=== PATIENT | female | born 1960 | race Caucasian/White ===

== ENCOUNTER 2024-08-28 22:23 | Inpatient (IN) ==
--- NOTE | 2024-08-28 23:20 | Emergency Department Note ---
ED Provider Note History of Present Illness Chief Complaint: Ankle Pain Stated Complaint: RT ANKLE MIGHT BE BROKEN, FALL Time Seen by Provider: 08/28/24 23:06 Source: patient Mode of arrival: ambulatory Limitations: no limitations This patient is a 64-year-old female who presents to the emergency department for evaluation of a right ankle injury. Patient reports that she fell down the steps. She states that when she felt herself falling, she sat down but she did not get her ankle out from under herself before that happened. She reports pain and deformity in the right ankle. She is unable to move the ankle. No prior injuries to this ankle. Home Medications Medication Instructions Recorded Confirmed Type Aspirin (Aspirin EC Low Dose) 1 tab PO DAILY ##0 08/12/15 History CALCIUM CARBONATE-CHOLECALCIFE 2 tab PO DAILY ##0 08/12/15 History (CALTRATE 600+D) Ergocalciferol (Vitamin D) 400 inter.unit PO DAILY #0 tabs 08/12/15 History Fish Oil ([place]-3) 2 cap PO DAILY #0 caps 08/12/15 History MULTIPLE VITAMINS W/ MINERALS 1 tab PO DAILY ##0 08/12/15 History (MULTI FOR HER 50+) acetaminophen 500 mg tablet 1,000 mg (2 x 500 mg) PO Q8 30 08/29/24 Rx (Tylenol Extra Strength) days #180 tabs oxycodone 5 mg tablet 5 mg PO Q4H PRN pain #40 tabs 08/29/24 Rx Allergies Allergy/AdvReac Type Severity Reaction Status Date / Time Sulfa (Sulfonamide Allergy Unknown . Verified 08/13/15 00:26 Antibiotics) Past Med/Surg History Problem List (Updated 08/29/24 @ 20:46 by Siva Garcia MD) Encounter for pre-operative examination Fracture dislocation of right ankle Dyslipidemia (Chronic) Mitral valve prolapse (Chronic) Hyperlipemia (Chronic) History of appendectomy (Chronic) H/O ovarian cystectomy (Chronic) Partial small bowel obstruction Social History Smoking Status: Never smoker Second Hand Exposure: No; Do You Dip or Chew Tobacco: No; Tobacco Cessation Education Requested by Patient: No Hx Alcohol Use: Yes Alcohol type: wine and hard liquor Hx Substance Use: No Preferred Language: Romansh Communication Ability: Effective Chief Merchandising Officer Required: No Beliefs That Will Affect Care: None Current Living Situation: Spouse Other Information That Helps Us Care for You: No Feels Safe at Home: Yes Safety Concerns: Feels Safe At This Time Assistive Devices: Brace/Splint/Immobilizer, Glasses, Hospital Bed, Walker and Other Assistive Devices Comment: Orthoglass Splint. Physical Exam Vital Signs Vital Signs - 24 hr 08/29/24 00:10 Pulse Rate 66 VITALS: Vitals are noted on the nurse's note and reviewed by myself. GENERAL: This is a 64-year-old female, in no acute distress, well-developed well-nourished. SKIN: Ecchymosis noted over the medial malleolus of the right ankle. MUSCULOSKELETAL: Obvious deformity of the right ankle with foot pointing laterally. Dorsalis pedis pulse 2+. NEURO: Patient was alert and oriented to person place and time. Distal sensation intact. Procedures Orthopedic Fracture Reduction Right Ankle: Side: right Fracture Reduction Location: tibia and fibula Analgesia: other (Dilaudid) Technique: direct manipulation Post Reduction X-rays Demonstrate: acceptable reduction Post-reduction neuro exam: intact and no change Post-reduction vascular exam: intact and no change Splint Applied: Yes Patient Tolerated Procedure: well Course Course Splint placement: Splint: Ortho-Glass posterior and stirrup Indication: Distal tibia/fibula fracture Ortho-Glass splint was applied by the ED sound effects technician under my supervision. Neurovascular status reassessed by myself status post splint placement and was intact. Administered Medications Acetaminophen (Acetaminophen 500 Mg Tab) 1,000 mg PO Q8 [facility] Stop: 09/28/24 21:59 Last Admin: 08/29/24 21:32 Dose: 1,000 mg Documented By: MIRACLE Ascorbic Acid (Ascorbic Acid 500 Mg Tab) 500 mg PO BIDM [facility] Stop: 09/28/24 17:22 Last Admin: 08/29/24 20:22 Dose: 500 mg Documented By: MIRACLE Docusate Sodium (Docusate Sodium 100 Mg Cap) 100 mg PO BID [facility] Stop: 09/28/24 20:59 Last Admin: 08/29/24 20:20 Dose: Not Given Documented By: MIRACLE Sodium Chloride (Nss) 1,000 mls @ 80 mls/hr IV .[id number] [facility] Stop: 08/30/24 03:29 Last Admin: 08/29/24 17:34 Dose: 80 mls/hr Documented By: Infusion: 08/29/24 17:24 Dose: Infused Documented By: Admin: 08/29/24 02:46 Dose: 80 mls/hr Documented By: FAYE Cefazolin Sodium (Ancef 1000mg) 1,000 mg in 7.5 mls @ 2.5 mls/min IV Q8H [facility]; Protocol Stop: 08/30/24 06:32 Last Admin: 08/29/24 21:32 Dose: 2.5 mls/min Documented By: MIRACLE Ketorolac Tromethamine (Ketorolac 30 Mg/Ml Vial) 30 mg IV Q6H [facility] Stop: 08/31/24 12:01 Last Admin: 08/29/24 18:26 Dose: 30 mg Documented By: LESA Morphine Sulfate (Morphine Sulfate 2 Mg/Ml Carp) 2 mg IV Q2H PRN PRN Reason: Pain Stop: 09/12/24 05:30 Last Admin: 08/29/24 11:34 Dose: 2 mg Documented By: Admin: 08/29/24 09:33 Dose: 2 mg Documented By: Admin: 08/29/24 07:38 Dose: 2 mg Documented By: Admin: 08/29/24 05:46 Dose: 2 mg Documented By: FAYE Oxycodone HCl (Oxycodone Hcl Ir 5 Mg Tab (Immediate Release)) 5 mg PO Q4H PRN PRN Reason: Pain Stop: 09/12/24 02:11 Last Admin: 08/29/24 08:39 Dose: 5 mg Documented By: Admin: 08/29/24 04:49 Dose: 5 mg Documented By: PAOAL Sennosides (Senna 8.6 Mg Tab) 17.2 mg PO HS [facility] Stop: 09/28/24 20:59 Last Admin: 08/29/24 20:20 Dose: Not Given Documented By: MIRACLE Discontinued Medications Acetaminophen (Acetaminophen 500 Mg Tab) 1,000 mg PO Q8H PRN PRN Reason: Pain Stop: 09/28/24 02:11 Last Admin: 08/29/24 07:40 Dose: 1,000 mg Documented By: LESA Bupivacaine HCl/Epinephrine Bitart (Bupivacaine/Epinephrine 0.5% Mpf 1:200,000 30 Ml Vial) Confirm Administered Dose 30 ml .ROUTE .STK-MED ONE Stop: 08/29/24 14:44 Last Admin: 08/29/24 15:50 Dose: 30 ml Documented By: CORKY Hydromorphone HCl (Hydromorphone Inj 1 Mg/Ml Syringe) 1 mg IV NOW STA Stop: 08/28/24 23:15 Last Admin: 08/28/24 23:39 Dose: 1 mg Documented By: EDILMA Cefazolin Sodium (Ancef 2000mg) 2,000 mg in 15 mls @ 3.75 mls/min IV PREOP [facility]; Protocol Stop: 08/29/24 16:00 Last Admin: 08/29/24 14:40 Dose: 3.75 mls/min Documented By: THONY Medical Decision Making Differential Diagnosis Fracture, subluxation, dislocation, contusion, ligamentous injury, neurovascular, compartment syndrome, rhabdomyolysis, as well as other pathologies. Laboratory Data Attestation: I reviewed the patient's lab results. 08/29/24 00:36 08/29/24 00:36 Lab Results 08/29/24 Range/Units 00:36 WBC 8.49 (4.8-10.8) K/ul RBC 4.24 (4.20-5.40) M/uL Hgb 12.9 (12.0-16.0) g/dl Hct 37.4 (37.0-47.0) % MCV 88.2 (80.0-100.0) fL MCH 30.4 (25.0-34.0) pg MCHC 34.5 (32.0-36.0) g/dL RDW Std Deviation 40.3 (36.4-46.3) fL RDW Coeff of Maritza 12.6 (11.5-14.5) % Plt Count 196 (130-400) K/uL MPV 10.2 (9.4-12.4) fL Immature Gran % (Auto) 0.2 % Neut % (Auto) 71.3 % Lymph % (Auto) 20.1 % Bulloch % (Auto) 6.5 % Eos % (Auto) 1.4 % Baso % (Auto) 0.5 % Neut # (Auto) 6.05 (1.40-6.50) K/uL Lymph # (Auto) 1.71 (1.20-3.40) K/uL Bulloch # (Auto) 0.55 (0.11-0.59) K/uL Eos # (Auto) 0.12 (0.00-0.50) K/uL Baso # (Auto) 0.04 (0.00-0.20) K/uL Immature Gran # (Auto) 0.02 (0.01-0.20) K/uL Sodium 141 (136-145) mmol/L Potassium 3.8 (3.5-5.1) mmol/L Chloride 109 H (98-107) mmol/L Carbon Dioxide 27 (21-32) mmol/L Anion Gap 5 (3-11) BUN 24 H (6-23) mg/dl Creatinine 0.68 (0.6-1.2) mg/dl Est Cr Clr Drug Dosing Not Reportable eGFR 96.59 BUN/Creatinine Ratio 35.3 H (10-20) Glucose 111 H (70-99(Fasting)) mg/dl Calcium 8.7 (8.6-10.3) mg/dl Imaging Data Attestation: I personally reviewed and interpreted this imaging study as follows: My Impression: ANKLE: Trimalleolar fracture with displacement noted ANKLE (postreduction): Somewhat improved alignment of the previously noted trimalleolar fracture MDM Narrative Patient is a 64-year-old female who presents to the emergency department for evaluation of an ankle injury. Patient has a displaced fracture on exam. X- rays obtained. The ankle was reduced into a more satisfactory position and splint was applied. Orthopedics was consulted and will admit the patient for operative management tomorrow. Patient was given Dilaudid for pain in the ER with significant improvement. Patient comfortable with the plan of care. Discharge Plan Visit Data Chief Complaint: Ankle Pain Stated Complaint: RT ANKLE MIGHT BE BROKEN, FALL ED Provider: Marc Lizarraga ED Midlevel Provider: Marivel Alicia Patient Disposition: Admitted As Inpatient Discharge Instructions Interventions: ED Discharge Assessment Last Done: 08/29/24 02:10
[2024-08-28] MEDS: HYDROmorphone INJ 1 MG/ML SYRINGE IV STA (23:39)
--- OUTSIDE RECORDS SUMMARY | 2024-08-29 00:25 | External Medical Summary | Summary of Care ---
Author Name Unknown Organization [facility] Address [address] [place] [address] Phone [phone] Care Team Providers Care It Service Delivery Manager Name Role Phone Clara Aguilar MD Primary Care Provider [phone] Encounter Details Date Type Department Care Team (Late st Contact Info) Description 05/09/2024 Orders Only Outcomes Research Department [address] [place] [address] Sissy Molina [employer], Research Other*[id number] Allergies Active Allergy Reactions Criticality Noted Date Comments Sulfa Antibiotics 05/05/2001 documented as of this encounter (statuses as of 05/09/2024) Medications No known medicationsdocumented as of this encounter (statuses as of 05/09/2024) Active Problems Problem Noted Date Diagnosed Date Osteopenia 01/23/2022 Overview: Repeat DEXA 2024 Adenomatous polyp of rectum 12/13/2017 Sciatica of left side 11/11/2016 Plantar fasciitis 08/13/2016 Adenomatous polyp of transverse colon 08/10/2016 Overview: Repeat colonoscopy 2018. dysplastic compound nevus left midback and lower back 02/2109/01/2002 dysplastic compound nevus le ft back and left breast ,right lower abdomen 07/2309/01/2002 Mitral valve prolapse Overview: mild MR Hyperlipidemia with target LDL less than 100 Overview: ICD-10 update of inactive term documented as of this encounter (statuses as of 05/09/2024) Immunizations Name Administration Dates Next Due Seasonal Influenza, PF, 6 M & above, IM , (FluLaval or Fluzone) 09/15/2022,08/29/2020 Seasonal Influenza, Quadrivalent, No Preserve, I M 06/08/2016,08/18/2015 Seasonal Influenza, Trivalen t, (IIV3), with Preserv, (Fluzone) 10/11/2014,10/02/2013 TD, Preservative Free 09/15/2022 TDAP, Age 7 and older, IM (Adacel) 10/07/2011 documented as of this encounter Social History Tobacco Use Types Packs/Day Years Used Date Smoking Tobacco: Never Smokeless Tobacco: Never Alcohol Use Standard Drinks/Week Comments Yes 0 (1 standard drink = 0.6 oz pur e alcohol) socially PHQ-2 Answer Date Recorded PHQ Adult Total Score 0 09/15/2022 Hunger Vital Sign Answer Date Recorded Within the past 12 months, y ou worried that your food would run out before you got the money to buy more. Never true 08/29/19 21 Within the past 12 months, t he food you bought just didn't last and you didn't have money to get more. Never true 08/29/2020 Utilities Answer Date Recorded Do you have trouble paying y our heating, water, or electric bill? (Adult - for ages 18 years and over) Not on file 02/08/2024 Is your family able to pay t he heat, water, or electric bill? (Household - for ages 0-17 years) Not on file 02/08/2024 Does your family have access to good internet? (Household - for ages 0-17 years) Not on file 02/08/2024 Social Connections Answer Date Recorded How often do you feel lonely or isolated from those around you? (Adult - for ages 18 years and over) Not on file 02/08/2024 Sex and Gender Information Value Date Recorded Sex Assigned at Female 12/15/2018 8:27 AM EDT Gender Identity Female 12/15/2018 8:27 AM EDT Sexual Orientation Straight 12/15/2018 8: 27 AM EDT Job Start Date Occupation Industry Not on file Not on file Not on file documented as of this encounter Plan of Treatment Scheduled Orders Name Type Priority Associated Diagnoses Orde r Schedule MYCODE SUBSEQUENT ADULT Lab Routine MyCode Research Other*[id number] Every 6 Months for 2 Occurrences starting 05/09/2024 until 05/29/2025 Health Maintenance Due Date Last Done Comments HPV/Co-Test 1989 Cologuard 2004 Fecal Occult Blood Test 2004 05/05/2001 Sigmoidoscopy 2004 Zoster Vaccines (1 of 2) 2009 Colonoscopy 11/10/2018 11/11/2015, 10/22, 11/10/2007 Colorectal Cancer Screening 11/10/2018 Depression Screening 09/15/2023 09/15/2022 Mammogram 11/11/2023 11/10/2022, 08/2021, 09/18/2020, Additional history exists COVID-19 Vaccine ( season) 2024 Influenza Vaccine (FLU shot) (#1) 2024 09/15/2022, 08/29/2020, 06/08/2016, Additional history exists Diabetes Screening 09/12/2024 09/12/2021, 0 12/14/2018, 12/13/2017, Additional history exists Cervical Cancer Screening 12/17/2024 Pap Smear 12/17/2024 12/17/2021, 07/24, 07/30/2014, Additional history exists Lipid Panel 09/12/2026 09/12/2021, 11/22, 12/13/2017, Additional history exists DTap/Tdap Vaccines (3 - Td or Tdap) 09/15/2032 09/15/2022, 10/07/2011 HPV (Gardasil) Vaccine Aged Out No lo nger eligible based on patient's age to complete this topic Hepatitis B Vaccine Aged Out No longe r eligible based on patient's age to complete this topic MENINGOCOCCAL (MENACTRA/MENVEO) Aged Out No longer eligible based on patient's age to complete this topic Pneumococcal Vaccine: Pediatrics (0 to 5 Years) and At-Risk Patients (6 to 64 Years) Aged Out No longer eligible based on patient's age to complete this topic documented as of this encounter Medical Devices Not on filedocumented as of this encounter Visit Diagnoses Diagnosis MyCode Research Other*[id number] documented in this encounter Care Teams It Service Delivery Manager Relationship Specialty Start Date End Date Clara Aguilar MD [address] [place] [address] PCP - General Internal Medicine 10/01/11 documented as of this encounter
[2024-08-29 00:56] LABS: Basophils # (auto) 0.04 K/uL (0.00-0.20); Basophils % (auto) 0.5 %; Eosinophils # (auto) 0.12 K/uL (0.00-0.50); Eosinophils % (auto) 1.4 %; Hematocrit (blood only) 37.4 % (37.0-47.0); Hemoglobin 12.9 g/dl (12.0-16.0); Immature Granulocytes # (auto) 0.02 K/uL (0.01-0.20); Immature Granulocytes % (auto) 0.2 %; Lymphocytes # (auto) 1.71 K/uL (1.20-3.40); Lymphocytes % (auto) 20.1 %; Mean Corpuscular Hemoglobin 30.4 pg (25.0-34.0); Mean Corpuscular Hgb Conc 34.5 g/dL (32.0-36.0); Mean Corpuscular Volume 88.2 fL (80.0-100.0); Mean Platelet Volume 10.2 fL (9.4-12.4); Monocytes # (auto) 0.55 K/uL (0.11-0.59); Monocytes % (auto) 6.5 %; Neutrophils # (auto) 6.05 K/uL (1.40-6.50); Neutrophils % (auto) 71.3 %; Platelet Count 196 K/uL (130-400); RDW Coefficient of Variation 12.6 % (11.5-14.5); RDW Standard Deviation 40.3 fL (36.4-46.3); Red Blood Count 4.24 M/uL (4.20-5.40); White Blood Count 8.49 K/ul (4.8-10.8)
[2024-08-29 01:07] LABS: Anion Gap 5 (3-11); BUN Creatinine Ratio 35.3 (10-20); Blood Urea Nitrogen 24 mg/dl (6-23); Calcium 8.7 mg/dl (8.6-10.3); Carbon Dioxide 27 mmol/L (21-32); Chloride 109 mmol/L (98-107); Glucose 111 mg/dl (70-99(Fasting)); Potassium 3.8 mmol/L (3.5-5.1); Sodium 141 mmol/L (136-145)
--- NOTE | 2024-08-29 01:28 | XRay Report ---
EXAM: XR chest 1V portable CLINICAL HISTORY: PRE OP DENIES CHEST COMPLAINTS [facility] TECHNIQUE: An X-ray image of the chest is obtained in AP projection. COMPARISON: 08/12/2015. FINDINGS: Pulmonary Parenchyma: Lungs show bilateral perihilar prominent bronchovascular markings. No evidence of consolidation, collapse, or focal opacities. No pulmonary nodules are identified. No evidence of pleural effusion or pleural thickening. Heart and Mediastinum: Heart size and shape are normal. No mediastinal widening or masses. No hilar or mediastinal lymphadenopathy. Bony Thorax: Bony thorax appears intact without fractures or deformities. Soft Tissues: Soft tissues overlying the chest wall are unremarkable. IMPRESSION: Bilateral prominent bronchovascular markings, more apparent compared to the last CR, are nonspecific finding; clinical correlation is advised. Electronically signed by Debbie Villalobos 08-29-2024 01:28 AM
--- NOTE | 2024-08-29 01:32 | XRay Report ---
Exam(s): XR RIGHT ANKLE, 3+ views EXAM: XR Right Ankle Complete, 3 or More Views CLINICAL HISTORY: Reason for exam: right ankle injury. TECHNIQUE: Frontal, lateral and oblique views of the right ankle. COMPARISON: None FINDINGS: Bones/joints: Displaced fractures of the medial, lateral, and posterior malleoli. Disruption of the ankle mortise. No dislocation. Soft tissues: Soft tissue swelling. IMPRESSION: Trimalleolar fractures with disruption of the ankle mortise. Electronically signed by: Danita Gonzales M.D. 08/29/24 01:31 AM
--- NOTE | 2024-08-29 01:40 | XRay Report ---
EXAM: XR ankle RT min 3V routine CLINICAL HISTORY: POST REDUCTION RT ANKLE DONE IN SPLINT [facility] TECHNIQUE: X-ray images of the right ankle were obtained in anteroposterior (AP), lateral, and mortise projections. COMPARISON: No prior studies available for comparison. FINDINGS: Plaster splint noted. Bone Structure: Displaced distal tibia and fibula fracture with intra-articular extension. Joint Spaces: Joint spaces are normal. No evidence of joint effusion or subluxation. Soft Tissues: Soft tissues appear normal and unremarkable. No soft tissue swelling, calcifications, or foreign bodies noted. Additional Findings: No signs of osteoarthritis, bone spurs, lytic or sclerotic lesions. IMPRESSION: Displaced fractures at the distal tibia and fibula with intra-articular extension. Disclaimer: A subtle bone abnormality or fracture may not be readily apparent on X-rays, thus clinical correlation and further imaging including follow-up CT, MRI, or follow-up X-rays are advised as needed. Electronically signed by Debbie Villalobos 08-29-2024 01:40 AM
--- NOTE | 2024-08-29 02:22 | CT Scan Report ---
EXAM: CT ankle RT wo con CLINICAL HISTORY: right ankle fx PW/VANESSA TECHNIQUE: Contiguous axial CT images of the right ankle joint were obtained without intravenous contrast. Sagittal and coronal multiplanar reformats were acquired. One of the following dose reduction techniques were utilized for this exam: Automated exposure control, adjustment of the mA and/or kV according to patient size, use of iterative reconstruction. COMPARISON: CR 08/29/2024 FINDINGS: Bones: Comminuted fracture of the distal tibia and fibula with intra-articular extension, multiple free bony fragments, and a tiny intra-articular bony fragment at the talotibial joint. The distal tibia fragment shows posterior displacement, and the distal fibula fragments show lateral displacement. No lytic or sclerotic lesions. No evidence of bone marrow edema. Joints: Normal appearance of the tibiotalar, subtalar, and other ankle joints. No joint effusions or significant degenerative changes. Normal articular surfaces without erosions or osteophyte formation. Soft Tissues: Diffuse surrounding soft tissue edema and subcutaneous fat stranding noted. No evidence of tendinopathy or ligamentous injury. Muscles: Normal appearance of the surrounding musculature. No muscle atrophy or abnormal density changes. IMPRESSION: 1. Comminuted displaced fractures of distal tibia and fibula with intra-articular extension at both levels and tiny bony fragments within the talotibial joint. 2. Surrounding soft tissue edema noted. 3. More detailed appearance compared to CR. Electronically signed by Debbie Villalobos 08-29-2024 02:21 AM
[2024-08-29] MEDS: SODIUM CHLORIDE 0.9% 1,000 ML IV SCH (02:46)
[2024-08-29] MEDS: oxyCODONE HCL IR 5 MG TAB (IMMEDIATE RELEASE) PO PRN (04:49)
[2024-08-29] MEDS: MoRPHine SULFATE 2 MG/ML CARP IV PRN (05:46)
--- NOTE | 2024-08-29 06:31 | History & Physical Report ---
Date of Service August 29, 2024 Assessment & Plan (1) Fracture dislocation of right ankle: We will keep her npo for surgery later today, likely ORIF of the right ankle. Procedure explained today. Keep right foot/ankle elevated on pillows, ice to right ankle. NWB RLE. Pain better controlled. Aleksandar/scd to left leg for dvt prophylaxis. Will likely resume aspirin post op for dvt prophylaxis. History of Present Illness Chief Complaint: . Primary Care Provider: Clara Aguilar MD .Kody is a 64 year old patient who injured her right ankle last night when walking down her stairs. She had pain and deformity, was seen in the ER last night, underwent closed reduction and splinting and was admitted overnight. She is complaining of only right ankle pain, some pain across the top of her foot. She did get some morphine and pain is better controlled. No other complaints. Allergies Allergy/AdvReac Type Severity Reaction Status Date / Time Sulfa (Sulfonamide Allergy Unknown . Verified 08/13/15 00:26 Antibiotics) Home Medications Medication Instructions Recorded Confirmed Type Aspirin (Aspirin EC Low Dose) 1 tab PO DAILY ##0 08/12/15 History CALCIUM CARBONATE-CHOLECALCIFE 2 tab PO DAILY ##0 08/12/15 History (CALTRATE 600+D) Ergocalciferol (Vitamin D) 400 inter.unit PO DAILY #0 tabs 08/12/15 History Fish Oil ([place]-3) 2 cap PO DAILY #0 caps 08/12/15 History MULTIPLE VITAMINS W/ MINERALS 1 tab PO DAILY ##0 08/12/15 History (MULTI FOR HER 50+) Past Med/Surg History Problem List (Updated 08/29/24 @ 06:29 by Jose Carlos Loredo PA-C) Fracture dislocation of right ankle Dyslipidemia (Chronic) Mitral valve prolapse (Chronic) Hyperlipemia (Chronic) History of appendectomy (Chronic) H/O ovarian cystectomy (Chronic) Partial small bowel obstruction Social History Smoking Status: Never smoker Second Hand Exposure: No; Do You Dip or Chew Tobacco: No; Tobacco Cessation Education Requested by Patient: No Hx Alcohol Use: Yes Alcohol type: wine and hard liquor Hx Substance Use: No Preferred Language: Nepali Communication Ability: Effective Project Management Instructor Required: No Beliefs That Will Affect Care: None Current Living Situation: Spouse Other Information That Helps Us Care for You: No Feels Safe at Home: Yes Safety Concerns: Feels Safe At This Time Assistive Devices: Brace/Splint/Immobilizer, Glasses, Hospital Bed, Walker and Other Assistive Devices Comment: Orthoglass Splint. Review of Systems All systems reviewed & are unremarkable except as noted in HPI & below. Physical Exam . alert and oriented. NAD Right ankle: splint in place. Foot is in slight plantarflexion, Able to gently move toes. Brisk refill, sensation intact to touch. Splint not removed today. Results & Data Results & Data Laboratory Results . Diagnostic Findings . xrays and ct scan of the right ankle show a displaced trimalleolar ankle fx/dislocation, with some residual displacement. PG Care Time/CCT Total # of Minutes Spent Total Time Spent with Patient: Total time spent is greater than 50% in coordination of care (as documented) at patient's floor/unit and/or counseling patient: Coding Level of Care Code 90168 INT INP/OBS CARE MIN (57 - DECISION FOR SURGERY) Diagnoses Fracture dislocation of right ankle S82.891A
[2024-08-29] MEDS: ACETAMINOPHEN 500 MG TAB PO PRN (07:40)
--- NOTE | 2024-08-29 09:00 | Electrocardiogram Report ---
Test Reason : Blood Pressure : */* mmHG Vent. Rate : 64 BPM Atrial Rate : 64 BPM P-R Int : 160 ms QRS Dur : 92 ms QT Int : 432 ms P-R-T Axes : 44 36 45 degrees QTcB Int : 445 ms Sinus rhythm with occasional Premature ventricular complexes Otherwise normal ECG When compared with ECG of 12-Aug-2015 18:10, Premature ventricular complexes are now Present Confirmed by Marcellus Guzmán ([id number]) on 08/29/2024 8:59:26 AM Referred By: REFERRED SELF Confirmed By: Marcellus Guzmán
--- NOTE | 2024-08-29 11:07 | Anesthesiology Consultation ---
Date of Service August 29, 2024 Assessment & Plan (1) Encounter for pre-operative examination: Chart Review Chart Review: Acceptable Risk for Surgery and Patient NOT seen in Pre Admission Testing Consults Requested none History Surgery Operation Date: 08/29/24 09:55 Proposed Procedures p Right Ankle Open Reduction Internal Fixation - Raz Mari MD Height/Weight Height: 5 ft 9 in Weight: 70.08 kg Allergies Allergy/AdvReac Type Severity Reaction Status Date / Time Sulfa (Sulfonamide Allergy Unknown . Verified 08/13/15 00:26 Antibiotics) Medications Home Medications Medication Instructions Recorded Confirmed Last Taken Aspirin (Aspirin EC Low Dose) 1 tab PO DAILY ##0 08/12/15 Unknown CALCIUM CARBONATE-CHOLECALCIFE 2 tab PO DAILY ##0 08/12/15 Unknown (CALTRATE 600+D) Ergocalciferol (Vitamin D) 400 inter.unit PO DAILY #0 tabs 08/12/15 Unknown Fish Oil ([place]-3) 2 cap PO DAILY #0 caps 08/12/15 Unknown MULTIPLE VITAMINS W/ MINERALS 1 tab PO DAILY ##0 08/12/15 Unknown (MULTI FOR HER 50+) Active Medications Generic Name Dose Route Start Last Admin Trade Name Freq PRN Reason Stop Dose Admin Acetaminophen 1,000 mg 08/29/24 02:12 08/29/24 07:40 Acetaminophen 500 Mg Tab PO 09/28/24 02:11 1,000 mg Q8H PRN Administration Pain Sodium Chloride 1,000 mls @ 80 mls/hr 08/29/24 02:30 08/29/24 02:46 Nss IV 08/30/24 03:29 80 mls/hr .[id number] GORDON Administration Morphine Sulfate 2 mg 08/29/24 05:31 08/29/24 09:33 Morphine Sulfate 2 Mg/Ml Carp IV 09/12/24 05:30 2 mg Q2H PRN Administration Pain Oxycodone HCl 5 mg 08/29/24 02:12 08/29/24 08:39 Oxycodone Hcl Ir 5 Mg Tab (Immediate Release) PO 09/12/24 02:11 5 mg Q4H PRN Administration Pain NPO Date Last Intake of Fluids: 08/28/24 Time Last Intake of Fluids: 23:59 Date Last Intake of Solids: 08/28/24 Time Last Intake of Solids: 23:59 Social History Smoking Status: Never smoker Do You Dip or Chew Tobacco: No Hx Alcohol Use: Yes Alcohol type: wine and hard liquor alcohol intake frequency: holidays/special occasions only Hx Substance Use: No substance use type: does not use Physical Exam Vital Signs Last Vital Signs Temp 98.1 F 08/29/24 07:28 Pulse 64 08/29/24 07:28 Resp 18 08/29/24 07:28 BP 102/59 L 08/29/24 07:28 Pulse Ox 98 08/29/24 07:28 O2 Del Method Room Air 08/29/24 07:28 Testing Laboratory Results 08/29/24 00:36 08/29/24 00:36 Blood Type A Positive 08/29/24 02:18 Antibody Screen NEGATIVE 08/29/24 02:18 Electrocardiogram Date: 08/29/24 Findings: + NSR @ (with PVC) Chest X-Ray Date: 08/28/24 Bilateral prominent bronchovascular markings, more apparent compared to the last CR, are nonspecific finding; clinical correlation is advised.
[2024-08-29] MEDS ORDERED: ROPIVACAINE 0.5% 5 MG/ML 30 ML VIAL ONE (12:52)
--- NOTE | 2024-08-29 13:02 | History & Physical Bridge Note ---
Date of Service August 29, 2024 History & Physical Bridge Note I have examined the patient, reviewed the History & Physical and in the interval since the performance of the History & Physical I have noted the following changes of clinical significance: no changes noted
[2024-08-29] MEDS ORDERED: fentaNYL citrate PF 100 MCG/2 ML VIAL IV PRN (13:55)
[2024-08-29] MEDS ORDERED: ATROPINE SULFATE 0.1 MG/ML 10ML SYR IV PRN (13:55)
[2024-08-29] MEDS ORDERED: ePHEDrine sulfate 50 MG/ML AMP IV PRN (13:55)
[2024-08-29] MEDS ORDERED: ONDANSETRON INJ 2 MG/ML 2 ML VIAL IV PRN ×2 (13:55→17:23)
[2024-08-29] MEDS ORDERED: fentaNYL citrate PF 100 MCG/2 ML VIAL ONE (14:10)
[2024-08-29] MEDS ORDERED: MIDAZOLAM HCL 1 MG/ML 2ML VIAL ONE (14:10)
[2024-08-29] MEDS ORDERED: DEXAMETHASONE SOD INJ 4 MG/ML VIAL ONE (14:13)
[2024-08-29] MEDS ORDERED: PROPOFOL IV EMULSION 10 MG/ML 20 ML VIAL IV ONE (14:13)
[2024-08-29] MEDS ORDERED: ONDANSETRON INJ 2 MG/ML 2 ML VIAL ONE (14:13)
[2024-08-29] MEDS ORDERED: LIDOCAINE 2% 2 ML VIAL/AMP(20MG/ML) INFIL ONE (14:13)
[2024-08-29] MEDS: ceFAZolin 2000MG 2,000 MG/15 ML SYR IV SCH (14:40)
[2024-08-29] MEDS ORDERED: ePHEDrine sulfate 50 MG/5 ML SYR ONE (15:02)
[2024-08-29] MEDS ORDERED: KETOROLAC 30 MG/ML VIAL ONE (15:07)
[2024-08-29] MEDS: BUPIVACAINE/EPINEPHRINE 0.5% MPF 1:200,000 30 ML VIAL ONE (15:50)
--- NOTE | 2024-08-29 16:03 | Fluoroscopy Report ---
FL ankle RT min 3V RTN CLINICAL HISTORY: RT ANKLE FX ORIF COMPARISON STUDY: CT 08/29/2024 FLUOROSCOPY TIME: 39.1 seconds FLUOROSCOPY IMAGES: 5 EXPOSURE DOSE: 0.7333 mGy FINDINGS: Lateral plate and screw fusion hardware fixates the acute distal fibular fracture with inta ct cannulated screws of the medial malleolar fracture. Expected postoperative soft tissue swelling wi th deep tissue air. IMPRESSION: Fluoroscopic assistance as above. ACT 112: Negative or not required by law. Electronically signed by: Presley Crowe M.D. 08/29/2024 4:02 PM
--- NOTE | 2024-08-29 16:28 | Operative Report ---
PG Post Operative Report Pre & Post Diagnosis Operation Date: 08/29/24 09:55 Pre-Op Diagnosis: Right ankle Tri malleoli fracture/dislocation. Post-Op Diagnosis: Right ankle trimalleolar fracture/dislocation. I identified the patient and participated in the time-out.: Yes Procedure Operation Date: 08/29/24 09:55 Actual Procedures p Right Ankle trimalleolar fracture open Reduction Internal Fixation(Right) - Siva Garcia MD Surgeon Siva Garcia MD Heavy Equipment Mechanic Kory Loredo PA-C/Christa Cerrato PA-C Estimated Blood Loss 20 Findings Consistent with Post-Op Diagnosis Specimens None Anesthesia Type General Complications none Disposition Accompanied Patient To Recovery: No Indications The patient is a 64-year-old female sustained an injury last evening. She sustained a fall on the steps at home. She had acute onset of pain discomfort deformity to right foot patient brought to emergency room where x-rays show a right trimalar ankle fracture dislocation. She underwent closed reduction. She was admitted to the hospital and indicated for surgical management. Description of Procedure Operative implants consists of: Medial side implants consist of: 1. 4.0 partially-threaded/long threaded cannulated screw x 2 with washers. Lateral side implants consist of: 1. 7 hole Synthes one third semitubular locking plate. 2. 3.5 fully threaded cortical screws x 4. 3. 4.0 fully threaded cancellous screws x 2 The patient was taken the op room, identified, placed on the operative table in supine position. All conductors were appropriately padded. IV antibiotics t ried by anesthesia team. Regional anesthetic was implemented in the holding area. A general anesthetic was implemented. A right thigh tent was then placed. The right lower extremity splint was then removed. The right foot and ankle were then scrubbed with Hibiclens, prepped with ChloraPrep and draped in the usual sterile fashion. The right leg was elevated and exsanguinated with use of an Esmarch and a tourniquet was placed at 300 mmHg. Attention was first drawn to the medial side. A curvilinear incision was made over the medial malleolus. Sharp dissection was Directly down to the fracture. There is quite a bit of periosteal stripping. We had to remove a lot of soft tissue from the fracture site. There was some slight comminution which had to be removed. I then irrigated the wound. I reduced the fracture anatomically and placed 2 wires across the fracture site. This was verified fluoroscopically and then into a 4.0 partially-threaded/long threaded cancellous screws were then placed over the wires with washers on each screw. Despite excellent medial fixation. Attention drawn the laterally. A direct lateral approach to the fibula was then performed to a longitudinal incision. Sharp dissection Through subcutaneous tissue directly down to the fracture site. The fracture was exposed. It was reduced and held with reduction clamps. A single 3.5 cortical lag screw was placed from anterior to posterior fracture site. A 7 hole one third the plate was closed with 0.5 cortical x-rays brought in. The fracture irrigation. Subcutaneous cleaned and dried and sterile dressed with Xeroform, sterile leg cast padding, well-padded and stirrup splint was applied the patient was then brought out of general to the recovery in stable condition. Patient tolerated procedure well. Kory Loredo, and Christa Chong, both the physician assistants, required for this case for proper prepping and draping Daniela, retraction, placement of the hardware of the fracture, closure of the incision site placement of the postoperative splint. I attest to the content of the Intraoperative Record and any orders documented therein. Any exceptions are noted below.
[2024-08-29] MEDS ORDERED: NALOXONE HCL 0.4 MG/1 ML VIAL/CARP IV PRN (17:23)
[2024-08-29] MEDS ORDERED: METOCLOPRAMIDE HCL INJ 5 MG/ML 2 ML VIAL IV PRN (17:23)
[2024-08-29] MEDS ORDERED: MAGNESIUM HYDROXIDE SUSP 30 ML UDC PO PRN (17:23)
[2024-08-29] MEDS ORDERED: HYDROmorphone INJ 1 MG/ML SYRINGE IV PRN (17:23)
[2024-08-29] MEDS ORDERED: ALUMINUM/MAGNESIUM SUSP 30 ML UDC PO PRN (17:23)
[2024-08-29] MEDS ORDERED: bisacodyL 10 MG SUPP PR PRN (17:23)
[2024-08-29] MEDS ORDERED: oxyCODONE HCL IR 5 MG TAB (IMMEDIATE RELEASE) PO PRN (17:23)
[2024-08-29] MEDS: KETOROLAC 30 MG/ML VIAL IV SCH (18:26)
--- NOTE | 2024-08-29 18:40 | Anesthesiology Progress Note ---
Date of Service August 29, 2024 Anesthesia Post Procedure Vital Signs Vital Signs: Temp Pulse Pulse Pulse Resp BP BP 08/29/24 18:26 36.6 C 66 16 106/67 08/29/24 17:50 36.5 C 75 18 125/75 08/29/24 17:20 36.5 C 60 18 103/64 08/29/24 17:00 36.2 C L 62 14 111/60 08/29/24 16:50 62 14 109/55 L 08/29/24 16:40 61 13 105/58 L 08/29/24 16:30 62 16 112/55 L 08/29/24 16:23 36.3 C L 62 16 102/58 L 08/29/24 13:25 37 C 60 18 140/60 08/29/24 07:28 36.7 C 64 18 102/59 L 08/29/24 02:05 36.5 C 64 16 125/77 08/29/24 02:05 08/29/24 00:10 66 08/28/24 22:30 36.7 C 76 22 132/80 Pulse Ox Pulse Ox O2 Del Method O2 Del Method O2 Flow Rate 08/29/24 18:26 94 Room Air 08/29/24 17:50 96 Room Air 08/29/24 17:20 97 Room Air 08/29/24 17:00 95 Room Air 08/29/24 16:50 95 Room Air 08/29/24 16:40 100 Oxymask 5 08/29/24 16:30 100 Oxymask 5 08/29/24 16:23 100 Oxymask 5 08/29/24 13:25 96 Room Air 08/29/24 07:28 98 Room Air 08/29/24 02:05 98 Room Air 08/29/24 02:05 98 Room Air 08/29/24 00:10 08/28/24 22:30 98 Room Air Pain Intensity Right Ankle: Pain Intensity: 9 Transfer of Care Handoff Completed per policy Notes Mental Status: alert / awake / arousable Patient Amnestic to Procedure: Yes Nausea / Vomiting: adequately controlled Pain: adequately controlled Airway Patency, RR, SpO2: stable & adequate BP & HR: stable & adequate Hydration State: stable & adequate Anesthetic Complications: no major complications apparent
[2024-08-29] MEDS: SENNA 8.6 MG TAB PO SCH (20:20)
[2024-08-29] MEDS: DOCUSATE SODIUM 100 MG CAP PO SCH (20:20)
[2024-08-29] MEDS: ASCORBIC ACID 500 MG TAB PO SCH (20:22)
[2024-08-29] MEDS: ACETAMINOPHEN 500 MG TAB PO SCH (21:32)
[2024-08-29] MEDS: ceFAZolin 1000MG 1,000 MG/7.5 ML SYR IV SCH (21:32)
[2024-08-30 07:53] VITALS: PULSE 68
[2024-08-30] MEDS: dexAMETHasone 10 MG in SYRINGE 0 ML IV SCH (09:13)
[2024-08-30] MEDS: MULTIVITAMIN TAB PO SCH (09:13)
--- NOTE | 2024-08-30 11:46 | Orthopedic Progress Note ---
Date of Service August 30, 2024 Assessment & Plan (1) Fracture dislocation of right ankle: Plan: 64-year-old female postop day 1 from ORIF of her primary for fracture dislocation doing pretty well. Block still in effect. The pain is controlled. Plan: 1 DVT prophylaxis including thigh-high teds, SCDs, aspirin twice a day. 2. PT/OT. She is nonweightbearing the right leg for the next 2 weeks. 3. Pain control. Doing okay with current pain regimen. 4. Wound/dressing care. Leave this bandage in place for 2 weeks. See back in 2 weeks for suture removal. 5. Disposition. She can be discharged to home with her 's assistance. She will follow-up in our clinic in 2 to 3 weeks postop. Admission and Anticipated Discharge Date Admission Date: August 29, 2024 Subjective 64-year-old female postoperative day 1 from ORIF of the right femoral ankle fracture dislocation. That she is doing pretty well. Really does not have any sensation or function in her right leg yet. She is got no pain. No chest pain or shortness of breath. Not feeling lightheaded. Physical Exam Physical Exam: Physical exam shows a pleasant middle-age female. She is sitting up in bed talking to her looks pretty comfortable examination the right leg reveals the splint to be clean dry and in place. The toes are pink. She does not have any sensory or motor function yet. Respiratory: normal respiratory effort, lungs clear to auscultation Cardiovascular: RRR, no murmur, no edema Gastrointestinal (Abdomen): normal bowel sounds, soft, nontender, no hepatosplenomegaly Results & Data Vital Signs (Past 12 Hours) Vital Signs Temp Pulse Resp BP Pulse Ox O2 Del Method 08/30/24 11:22 36.8 C 68 14 126/79 96 Room Air 08/30/24 07:51 37 C 68 14 92/57 L 97 Room Air 08/30/24 02:55 36.5 C 90 16 103/56 L 97 Room Air
[2024-08-30] MEDS: ONDANSETRON INJ 2 MG/ML 2 ML VIAL IV PRN (13:57)
[2024-08-30 15:20] VITALS: BP 125/56; RESP 12; TEMP 98.6; O2SAT 95
--- NOTE | 2024-09-05 06:37 | Discharge Summary ---
Date of Service September 05, 2024 Admission HPI (Per Admitting) .Kody is a 64 year old patient who injured her right ankle last night when walking down her stairs. She had pain and deformity, was seen in the ER last night, underwent closed reduction and splinting and was admitted overnight. She is complaining of only right ankle pain, some pain across the top of her foot. She did get some morphine and pain is better controlled. No other complaints. Admission Exam (Per Admitting) . alert and oriented. NAD Right ankle: splint in place. Foot is in slight plantarflexion, Able to gently move toes. Brisk refill, sensation intact to touch. Splint not removed today. Principal Diagnosis Same as "Discharge Diagnosis" noted below under Discharge Instructions. Discharge Data Procedures Performed Operation Date: 08/29/24 09:55 Actual Procedures p Right Ankle Open Reduction Internal Fixation(Right) - Siva Garcia MD Ordered Studies 08/29/24 00:48 CT ankle RT wo con Stat 08/29/24 11:07 US - OR guided needle placemen Routine 08/29/24 14:25 FL ankle RT min 3V RTN Routine Hospital Course (1) Fracture dislocation of right ankle: This is a 64 year old patient admitted on 08/29/24 with an ankle fracture/dislocation and underwent closed reduction in the ER. She was later taken to the OR for open reduction internal fixation of the ankle fracture. She tolerated the procedure well and there were no complications. Transferred to the PACU post op and later to the orthopedic floor for further care. She was given ancef for antibiotic prophylaxis. She was also given ARIES stockings, SCDs, and aspirin for DVT prophylaxis. Vital signs were monitored during her hospital stay and remained stable. Did not require any blood transfusions. There were no complications during her hospital stay. By post op day #1 the patient was tolerating a regular diet, pain was reasonably controlled with oral pain medicine and the nerve block was still in effect. On post op day #1 the patient was discharged home. She was given printed discharge instructions including prescriptions for extra strength tylenol, aspirin, and oxycodone. Should continue nonweight bearing on the operative leg. Keep splint/dressing clean, dry, and intact. Follow up approximately 2 weeks post op or sooner if there are problems or concerns. Discharge Plan Discharge Items Patient Disposition: Home - Self-Care Reason For Visit: RIGHT ANKLE FRACTURE / DISLOCATION Discharge Diagnosis: Right Ankle Fracure Activity: Per Instructions section Activity Comment: Non-weightbearing on right leg. Keep all pressure off heel in bed. Weightbearing: Right non-weightbearing Non-emergency contact: Surgeon Call non-emergency contact if: you have any medication questions Follow-up/Referrals: Clara Aguilar MD [Primary Care Provider] - Siva Garcia MD [Physician] - (Orthopedic follow-up 2-3 weeks from surgery date) Diet: Regular Addtl Attending Provider Instructions: Keep splint and dressing clean, dry, and in place until Orthopedic follow-up appointment in 2-3 weeks Keep all pressure off heel while in bed Elevate right leg to level of heart as much as possible. Pending Studies at Discharge: No Stand-Alone Forms: My [facility] [employer], Smoking Cessation Medications and DC Order Prescriptions: New acetaminophen [Tylenol Extra Strength] 500 mg Tablet 1,000 mg PO Q8 30 Days Qty: 180 0RF Rx Instructions: Take 3 times per day to lessen pain. oxycodone 5 mg Tablet 5 mg PO Q4H PRN (Reason: pain) Qty: 40 0RF Rx Instructions: Take as needed for Pain. Continued Fish Oil ([place]-3) 1 EA capsule 2 cap PO DAILY Qty: 0 MULTIPLE VITAMINS W/ MINERALS (MULTI FOR HER 50+) 1 TAB tablet 1 tab PO DAILY Qty: 0 CALCIUM CARBONATE-CHOLECALCIFE (CALTRATE 600+D) 1 TAB tablet 2 tab PO DAILY Qty: 0 Ergocalciferol (Vitamin D) 400 INTER.UNIT tablet 400 inter.unit PO DAILY Qty: 0 Changed Aspirin (Aspirin EC Low Dose) 81 MG ENTERIC COATED TAB 1 tab PO BID 45 Days Qty: 90 0RF Rx Instructions: Take to prevent blood clots. No Action ondansetron HCl 4 mg tablet 4 mg PO Q6 PRN (Reason: nausea) Qty: 15 0RF sennosides [Senokot] 8.6 mg tablet 8.6 mg PO BID 14 Days Qty: 28 0RF Rx Instructions: Take two times a day to prevent/treat constipation Discharge Orders: Discharge Order (Routine); Ordered 08/30/24 Ordered By: Siva Garcia Admission Data Admit Date/Time: 08/29/24 00:51 Attending Provider: Raz Mari Admit Provider: Raz Mari Primary Care Provider: Clara Aguilar Other Providers: Siva Garcia Other Interventions: Discharge Summary Assessment (RN) Last Done: 08/30/24 14:52
== END 2024-08-30 18:47 | disposition home or self-care (01) | DRG 494 ==
LOC: ED 22:23 → 3N 08-29 00:51